=== PATIENT | male | born 2000 | race Hispanic/Latino ===

== ENCOUNTER 2021-02-20 10:17 | Emergency (ER) | payer OTHER ==
[2021-02-20 11:33] LABS: #Eosinphils 0.2 thou/uL (0.0-0.7); #Lymphocytes 2.2 thou/uL (1.20-3.40); #Monocytes 0.5 thou/uL (0.11-0.59); #Neutrophils 2.8 thou/uL (1.40-6.50); %Basophils 0.5 % (0.0-1.0); %Eosinophils 2.7 % (0.0-10.0); %Lymphocytes 38.6 % (28.0-48.0); %Monocytes 9.1 % (0.0-4.0); %Neutrophils 49.3 % (31.0-61.0); Hemoglobin 16.6 g/dL (14.0-18.0); Mean Corpuscular HGB CONC 33.8 g/dL (32.0-36.0); Mean Corpuscular Hemoglobin 30.7 pg (25.0-35.0); Mean Corpuscular Volume 90.8 fL (78.0-98.0); Mean Platelet Volume 7.5 fL (7.4-10.4); Platelet Count 226 thou/uL (130-400); RBC Distribution Width 12.5 % (11.5-14.5); Red Blood Cell (RBC) Count 5.42 mill/uL (4.00-5.20); White Blood Cell (WBC) Count 5.7 thou/uL (4.8-10.8)
[2021-02-20] MEDS ORDERED: Metoclopramide HCl 10 MG/2 ML VIAL ONE (11:51)
[2021-02-20] MEDS ORDERED: Ketorolac Tromethamine 30 MG/ML VIAL ONE (11:51)
[2021-02-20] MEDS ORDERED: diphenhydrAMINE 50 MG/ML VIAL ONE (11:51)
[2021-02-20 12:03] LABS: ALT (SGPT) 41 U/L (8-55); AST (SGOT) 22 U/L (10-45); Albumin 4.3 g/dL (3.5-5.0); Alkaline Phosphatase 76 U/L (50-130); Anion Gap 12 mmol/L (10-20); BUN (Urea Nitrogen) 12 mg/dL (8.4-21.0); Bilirubin, Total 0.3 mg/dL (0.2-1.2); Calc. Creatinine Clearance 0 mL/min (70-130); Calcium 9.5 mg/dL (7.8-10.44); Carbon Dioxide 28 mmol/L (22-29); Chloride 103 mmol/L (98-107); Globulin 3.4 g/dL (2.4-3.5); Glucose 104 mg/dL (70-105); Potassium 3.8 mmol/L (3.5-5.1); Protein, Total 7.7 g/dL (6.0-8.3); Sodium 139 mmol/L (136-145)
[2021-02-20] MEDS ORDERED: Magnesium 2 GM/50 ML BAG (IN WATER) ONE (12:59)
== END 2021-02-20 13:44 | disposition home or self-care (01) ==
LOC: ERS 10:17
DX: R51.9 Headache, unspecified (principal); H53.9 Unspecified visual disturbance
CPT/HCPCS: 36415; 70450; 80053; 85025; 96365; 96367; 96375; J1200; J1885; J2765; J3475

== ENCOUNTER 2021-03-08 18:35 | Emergency (ER) | payer OTHER ==
[2021-03-08 19:52] LABS: #Eosinphils 0.1 thou/uL (0.0-0.7); #Lymphocytes 2.3 thou/uL (1.20-3.40); #Monocytes 0.6 thou/uL (0.11-0.59); #Neutrophils 4.8 thou/uL (1.40-6.50); %Basophils 0.4 % (0.0-1.0); %Neutrophils 61.6 % (31.0-61.0); Hemoglobin 17.4 g/dL (14.0-18.0); Mean Corpuscular Hemoglobin 31.6 pg (25.0-35.0); Mean Corpuscular Volume 90.4 fL (78.0-98.0); Mean Platelet Volume 6.9 fL (7.4-10.4); Platelet Count 227 thou/uL (130-400); RBC Distribution Width 12.6 % (11.5-14.5); Red Blood Cell (RBC) Count 5.49 mill/uL (4.00-5.20); White Blood Cell (WBC) Count 7.9 thou/uL (4.8-10.8)
[2021-03-08] MEDS ORDERED: Metoclopramide 10 MG/10 ML UDCUP ONE (19:57)
[2021-03-08] MEDS ORDERED: diphenhydrAMINE 50 MG/ML VIAL ONE (19:57)
[2021-03-08] MEDS ORDERED: Metoclopramide HCl 10 MG/2 ML VIAL ONE ×2 (19:58→20:00)
[2021-03-08 20:11] LABS: ALT (SGPT) 22 U/L (8-55); AST (SGOT) 10 U/L (10-45); Alkaline Phosphatase 68 U/L (50-130); Anion Gap 11 mmol/L (10-20); BUN (Urea Nitrogen) 12 mg/dL (8.4-21.0); Bilirubin, Total 0.4 mg/dL (0.2-1.2); Calc. Creatinine Clearance 0 mL/min (70-130); Calcium 9.2 mg/dL (7.8-10.44); Carbon Dioxide 29 mmol/L (22-29); Chloride 103 mmol/L (98-107); Glucose 104 mg/dL (70-105); Potassium 3.5 mmol/L (3.5-5.1); Sodium 139 mmol/L (136-145)
== END 2021-03-08 22:10 | disposition home or self-care (01) ==
LOC: ERS 18:35
DX: H57.12 Ocular pain, left eye (principal); R51.9 Headache, unspecified; J45.909 Unspecified asthma, uncomplicated
CPT/HCPCS: 36415; 80053; 85025; 85652; 86140; 96374; 96375; J1200; J2765